=== PATIENT | female | born 1955 | race Caucasian/White ===

== ENCOUNTER 2016-12-30 09:24 | Observation (INO) ==
--- NOTE | 2016-12-30 10:00 | Emergency Department Note ---
Disposition Clinical Impression: Paresthesia Stroke Qualifiers: CVA mechanism: unspecified Qualified Code(s): I63.9 - Cerebral infarction, unspecified Disposition: Admitted As Inpatient Condition: Fair Neuro HPI - General Chief Complaint: ED Neuro Symptoms/Deficit Stated Complaint: Tingling/numbness of face, shaky legs/hands Time Seen by Provider: 12/30/16 09:32 Source: patient Limitations: no limitations Nursing Notes Reviewed: Yes Vital Signs Reviewed: Yes - History of Present Illness HPI Narrative: Patient here for evaluation of onset of neuro symptoms upon awakening. Patient went to bed last night at 9 PM without symptoms. She woke with what she felt was a tightness in her face and a numbness and tingling in her extremities that she described as all over. On physical exam the numbness is located to the left side of her face as well as her left upper and left lower extremity. Patient has seemed to concentrate in order to follow commands including sticking out her tongue as well as doing cerebellar signs. Cerebellar signs require slightly more concentration to left and may be associated with a mild left leg weakness as is not grossly abnormal and she does hit her targets. Patient does not take any medications at home. Denies smoking, occasional alcohol use, denies recreational drug use. Family history of heart disease but not stroke. Patient did have a workup approximately 15 years ago for neuro symptoms that were found to be negative. Patient did have a copy located hysterectomy resulted in infection and multiple adhesion surgeries. - Related Data Home Medications: Home Medications Medication Instructions Recorded Confirmed No Known Home Drugs 12/30/16 12/30/16 Allergies/Adverse Reactions: Allergies Allergy/AdvReac Type Severity Reaction Status Date / Time No Known Allergies Allergy Verified 12/30/16 09:28 Review of Systems: CONSTITUTIONAL: No weight loss, fever, chills, weakness or fatigue. HEENT: Eyes: No visual changes. Ears, Nose, Throat: No hearing loss, difficulty talking or unable to swallow. SKIN: No rash or itching. CARDIOVASCULAR: No chest pain, chest pressure or chest discomfort. No palpitations or edema. RESPIRATORY: No shortness of breath, cough or sputum. GASTROINTESTINAL: No anorexia, nausea, vomiting or diarrhea. No abdominal pain or blood. GENITOURINARY: No burning on urination or hematuria. NEUROLOGICAL: Numbness and tingling to the face arms and legs. MUSCULOSKELETAL: No muscle pain, back pain, joint pain or stiffness. Past Medical History - Past Medical History Medical history: Reports: no medical history - Social History Smoking Status: Never smoker Smokeless Tobacco Status: No Alcohol use: Reports: occasionally Drug use: Reports: none Physical Exam General appearance: NAD, conversant Eyes: anicteric sclerae, moist conjunctivae; PERRL HENT: Atraumatic; oropharynx clear with moist mucous membranes and no mucosal ulcerations Neck: Normal inspection; Trachea midline; FROM, supple Lungs: CTA, with normal respiratory effort and no intercostal retractions CV: RRR, no MRGs Abdomen: Soft, non-tender; no rebound or gaurding Extremities: No peripheral edema or extremity lymphadenopathy Skin: Normal temperature; no rash, ulcers or lesions Psych: Appropriate mood and affect Neuro: alert and oriented to person, place but not year - General Limitations: no limitations - Expanded Neurological Exam Speech: Present: fluid speech Cranial nerves: EOM function (II, III, IV, ): Normal, facial sensation (V): Abnormal Left, facial palsy (VII): Normal, gag reflex (IX): Normal, spinal accessory function (XI): Normal, tongue deviation (XII): Normal Cerebellar function: finger to nose: Normal, heel to mckenzie: Abnormal Left Cerebellar function: ataxic gait Motor strength - LUE: 4/5 Motor strength - RUE: 5/5 Motor strength - LLE: 4/5 Motor strength - RLE: 5/5 Sensory exam upper extremity: light touch: Abnormal Left Sensory exam lower extremity: light touch: Abnormal Left Coma Scale Eye Opening: Spontaneous Coma Scale Motor Response: Obeys Commands Coma Scale Verbal Response: Oriented Coma Scale Total: 15 - Psychiatric Psychiatric exam: Present: flat affect - Skin Skin exam: Present: warm, dry, intact Course - Reevaluation(s) Reevaluation #1: Patient symptoms remain. Stable in the department. CT negative for acute bleed. Workup otherwise negative. Patient was brought in for further observation and evaluation. - Consultations Consultation #1: Discussed with Dr. Barbour. Patient accepted for admission regarding abnormal neuro findings. Vital Signs Temperature 98.1 F 12/30/16 09:25 Pulse Rate 83 12/30/16 09:25 Respiratory Rate 18 12/30/16 09:25 Blood Pressure 128/84 12/30/16 09:25 O2 Sat by Pulse Oximetry 94 12/30/16 09:25 Temperature 98.3 F 12/30/16 18:51 Pulse Rate 72 12/30/16 18:51 Respiratory Rate 17 12/30/16 18:51 Blood Pressure 114/75 12/30/16 18:51 O2 Sat by Pulse Oximetry 98 12/30/16 18:51 Oxygen Delivery Oxygen Delivery Room Air Neuro Symptoms/Deficit - Medical Records Medical records reviewed: Yes I reviewed the patient's medical records. - Lab Data Lab results reviewed: Yes I reviewed the patient's lab results. Result diagrams: 12/30/16 10:00 12/30/16 10:00 Lab Results 12/30/16 12/30/16 12/30/16 Range/Units 09:33 10:00 10:00 WBC 4.7 (4.3-11.1) K/mcL RBC 5.18 H (3.82-4.97) M/mcL Hgb 15.5 H (11.5-15.4) g/dL Hct 46.1 H (35.3-44.9) % MCV 89.0 (83.0-100.0) fL MCH 29.9 (28.0-33.3) pg MCHC 33.6 (31.6-35.5) g/dL RDW 12.2 (11.5-14.5) % Plt Count 213 (140-400) K/mcL MPV 10.5 (9.4-12.4) fL Immature Gran % 0.2 (0-4) % Seg Neutrophils % 61.1 % Lymphocytes % 29.3 % Monocytes % 7.9 % Eosinophils % 0.6 % Basophils % 0.9 % Neutrophils # 2.9 (1.6-8.9) K/mcL Lymphocytes # 1.4 (0.6-4.6) K/mcL Monocytes # 0.4 (0.0-1.3) K/mcL Eosinophils # 0.0 (0.0-0.6) K/mcL Basophils # 0.0 (0.0-0.2) K/mcL PT 10.9 (9.4-12.1) Seconds INR 1.0 APTT 51.6 H (26.0-36.0) Seconds Sodium (136-145) mEq/L Potassium (3.5-4.5) mEq/L Chloride (98-109) mEq/L Carbon Dioxide (19-29) mEq/L BUN (7-20) mg/dL Creatinine (0.57-1.11) mg/dL Est GFR ( Amer) (> 60) Est GFR (Non-Af Amer) (> 60) BUN/Creatinine Ratio (6-26) Glucose (70-99) mg/dL POC Glucose 119 H (58-89) Calculated Osmolality (280-300) Calcium (8.6-10.8) mg/dL Ionized Calcium (1.15-1.35) mmol/L Phosphorus (2.3-4.7) mg/dL Magnesium (1.6-2.6) mg/dL Troponin I (0-0.03) ng/mL TSH (0.350-4.840) mcIU/mL PTH Intact (8.5-72.5) pg/ml 12/30/16 12/30/16 12/30/16 Range/Units 10:00 10:00 10:00 WBC (4.3-11.1) K/mcL RBC (3.82-4.97) M/mcL Hgb (11.5-15.4) g/dL Hct (35.3-44.9) % MCV (83.0-100.0) fL MCH (28.0-33.3) pg MCHC (31.6-35.5) g/dL RDW (11.5-14.5) % Plt Count (140-400) K/mcL MPV (9.4-12.4) fL Immature Gran % (0-4) % Seg Neutrophils % % Lymphocytes % % Monocytes % % Eosinophils % % Basophils % % Neutrophils # (1.6-8.9) K/mcL Lymphocytes # (0.6-4.6) K/mcL Monocytes # (0.0-1.3) K/mcL Eosinophils # (0.0-0.6) K/mcL Basophils # (0.0-0.2) K/mcL PT (9.4-12.1) Seconds INR APTT (26.0-36.0) Seconds Sodium 140 (136-145) mEq/L Potassium 3.8 (3.5-4.5) mEq/L Chloride 105 (98-109) mEq/L Carbon Dioxide 27 (19-29) mEq/L BUN 9 (7-20) mg/dL Creatinine 0.82 (0.57-1.11) mg/dL Est GFR ( Amer) > 60 (> 60) Est GFR (Non-Af Amer) > 60 (> 60) BUN/Creatinine Ratio 11 (6-26) Glucose 117 H (70-99) mg/dL POC Glucose (58-89) Calculated Osmolality 290 (280-300) Calcium 9.1 (8.6-10.8) mg/dL Ionized Calcium 1.09 L (1.15-1.35) mmol/L Phosphorus 3.3 (2.3-4.7) mg/dL Magnesium 2.2 (1.6-2.6) mg/dL Troponin I 0.00 (0-0.03) ng/mL TSH 1.700 (0.350-4.840) mcIU/mL PTH Intact 99.2 H (8.5-72.5) pg/ml - Radiology Data Radiology results reviewed: Yes I reviewed the patient's radiology results. - EKG Data EKG attestation: Yes I reviewed and interpreted this EKG. EKG results narrative: EKG shows sinus rhythm with ventricular rate of 78 bpm. IA interval 122. QRS 81. QTC 395. Patient has no significant ST elevations or depressions. Patient 's EKG unchanged from previous of 03/23/2007. TPA Checklist - LKW: 3-4.5 hrs Add. Contraindications Patient/family understanding: The patient/family members have been counseled and understood the risk, benefit , and alternatives of treatment.
[2016-12-30 10:14] LABS: Basophils % 0.9 %; Eosinophils % 0.6 %; Hematocrit 46.1 % (35.3-44.9); Hemoglobin 15.5 g/dL (11.5-15.4); Immature Granulocytes % 0.2 % (0-4); Lymphocytes # 1.4 K/mcL (0.6-4.6); Lymphocytes % 29.3 %; Mean Corpuscular HGB Conc 33.6 g/dL (31.6-35.5); Mean Corpuscular Hemoglobin 29.9 pg (28.0-33.3); Mean Platelet Volume 10.5 fL (9.4-12.4); Monocytes # 0.4 K/mcL (0.0-1.3); Monocytes % 7.9 %; Neutrophils # 2.9 K/mcL (1.6-8.9); Platelet Count 213 K/mcL (140-400); Red Blood Count 5.18 M/mcL (3.82-4.97); Red Cell Distribution Width 12.2 % (11.5-14.5); Segmented Neutrophils % 61.1 %
--- NOTE | 2016-12-30 10:16 | Emergency Department Note ---
START Narrative - START START: I examined this patient and my medical decision-making was reviewed with the EDGE BLACKER/PA/Advanced Practice Nurse/Resident Physician. I agree with the documented findings, disposition and treatment plan as described except to the extent set forth below. ED attending note: Patient seen with emergency medicine resident Dr. Quiles. Please see a copy of his note for details of the H&P, evaluation, management and disposition of this patient. We independently had [id number] contact with the patient Briefly: 61-year-old female ambulatory with spouse awoke with dysesthesia and slight heaviness of the left upper and lower extremity. Tingling sleepiness. Described as swollen asleep. Patient has slightly decreased strength in the left upper and lower extremity. Cranial nerves are normal gait appears to be normal although her mentation appears to be slow to answering questions. No prior TIA or CVA. She has been worked up for pleural sclerosis in the past which was negative per patient about 8 years ago. Patient will get a head CT and screening labs. EKG shows no acute ischemic changes sinus rhythm. Disposition pending.
[2016-12-30 10:18] LABS: Ionized Calcium 1.09 mmol/L (1.15-1.35)
[2016-12-30 10:22] LABS: Prothrombin Time 10.9 Seconds (9.4-12.1)
[2016-12-30 10:24] LABS: Activated Partial Thrombo Time 51.6 Seconds (26.0-36.0)
[2016-12-30 10:26] LABS: BUN/Creatinine Ratio 11 (6-26); Blood Urea Nitrogen 9 mg/dL (7-20); Calcium 9.1 mg/dL (8.6-10.8); Carbon Dioxide 27 mEq/L (19-29); Chloride 105 mEq/L (98-109); Glucose 117 mg/dL (70-99); Magnesium 2.2 mg/dL (1.6-2.6); Osmolality,Calculated 290 (280-300); Phosphorous 3.3 mg/dL (2.3-4.7); Potassium 3.8 mEq/L (3.5-4.5); Sodium 140 mEq/L (136-145); eGFR For African Americans > 60 (> 60); eGFR For Non-African Americans > 60 (> 60)
[2016-12-30] MEDS ORDERED: *HR* HYDROcodone/Acet 5/325 mg TABLET PO PRN (11:44)
[2016-12-30] MEDS ORDERED: Naloxone 0.4 MG/ML INJ IVP PRN (11:44)
[2016-12-30] MEDS ORDERED: Acetaminophen 325 MG TABLET PO PRN (11:44)
[2016-12-30] MEDS ORDERED: Ondansetron 4 MG/2 ML VIAL IVP PRN (11:44)
--- NOTE | 2016-12-30 12:04 | Internal Med History&Physical ---
<GissellPhu Mondragon - Last Filed: 12/30/16 16:05> Date of Encounter: 12/30/16 Time of Encounter: 11:30 Assessment and Plan (1) Neurological deficit present Current visit: Yes Status: Acute Assess: Mrs. García presents with neurological deficit symptoms when waking up this morning. Patient reports she did not have these when she went to bed. She describes the symptoms as numbness, tingling, and tightness in her face as well as numbness and tingling in her arms and legs bilaterally. Patient's states that she has had these symptoms before and had an MRI done years ago to check for MS but the results were negative. Patient reports that stress seems to coincide with these symptoms. Mrs. García reports having a neuro work-up approximately 14 years ago for similar symptoms that was negative. Patient shows some left-sided weakness on examination especially in the left leg when gait is observed. Patient is somewhat slow to respond to questioning and commands as well. Patient's current blood work show she is currently hypocoagulated and will not require anticoagulation at this time. Follow-up labs ordered. Plan: NIHSS scale and protocol Continuous cardiac telemetry Supplemental O2 Neurological checks at bedside per protocol Padding for bed rails Dysphagia screening CT of cervical spine ordered w/o contrast MR of head/brain ordered w/o contrast NPO for now based on dysphagia screen results Falls precautions/bed rest/[id number] when out of bed status (2) Weakness generalized Current visit: Yes Status: Acute Assess: Patient presents with complaint of numbness, tingling, and generalized weakness bilaterally. This is verified during examination, with more pronounced weakness in left arm and leg. Plan: NIHSS scale & protocol Falls precautions Bed rest Aw-dvfr-ntrywi only (3) DVT prophylaxis Current visit: Yes Status: Acute Assess: Patient placed on DVT prophylaxis per admission protocol, bed rest, and current stroke-like symptoms. Pharmacologic DVT prophylaxis is contraindicated due to possible stroke as well as patient's hypocoagulation status. Plan: SCDs ordered bilaterally for lower legs Follow-up labs ordered (APTT) Internal Medicine - H&P: HPI Chief complaint: Neuro symptoms/Deficits Admitted From: Emergency Dept Plans for Post Hospital Care: Home History of present illness: Ms. García is a 61 year old female presents from the ED with neurological deficit symptoms when waking up this morning. Patient reports she did not have these when she went to bed. She describes the symptoms as numbness, tingling, and tightness in her face as well as numbness and tingling in her arms and legs bilaterally. Patient's states that she has had these symptoms before and had an MRI done years ago to check for MS but the results were negative. Patient also reports generalized weakness and pain in her right shoulder that she had acupuncture done for. Patient reports that stress seems to coincide with these symptoms. Mrs. García reports having a neuro work-up approximately 14 years ago for similar symptoms that was negative. Patient shows some left- sided weakness on examination especially in the left leg when gait is observed. Patient is somewhat slow to respond to questioning and commands as well. Patient denies any recent illness, fever, chills, nausea, vomiting, diarrhea, melena, hematochezia, and hematemesis. Patients lungs are clear on auscultation and heart rate is normal and rhythmic. She denies smoking or drug use and reports EtOH use only occasionally. Patient is admitted as observation status with NIHSS scale and protocol including dysphasia screening and padding on bedrails, continuous cardiac telemetry and supplemental oxygen with titration, orders for CT of spine and MRA of head/brain (both w/o contrast). Patient is falls precautions with bed rest and up with assist only. SCDs will be placed bilaterally since pharmacologic DVT prophylaxis is contraindicated due to possible stroke. Patient to be monitored closely. Time spent with patient 40 minutes. Past Med Surg Social Fam HX - Past Medical History Source: patient Medical history: no medical history Psychiatric history: no psych history - Past Surgical History Surgical History: other (Removal of adhesions in uterus r/t cervical infection 14 years ago. Patient had blood clot to right lung following surgery and was placed on anticoagulation for one year.) - Social History Smoking Status: Never smoker Smokeless Tobacco Status: No Alcohol use: occasionally Drug use: none Current living situation: Home, With Family Activity Level: Independent ambulation Recent Out of Country Travel Within the Last 8 Weeks: No Exposure or Possible Exposure to Illness During Travel: No - Family History Father Race: Family Member Ethnicity: Non- Living Status: Age at : 89 Cause of : MS Hx Family Cardiac Disorders: Yes (MS) Hx Family Endocrine Disorder: Yes (DM) Mother Race: Family Member Ethnicity: Non- Living Status: Age at : 78 Hx Family Neurologic Disorders: Yes (Alzheimer's disease) Brother Race: Family Member Ethnicity: Non- Living Status: Still Living Hx Family Cardiac Disorders: Yes (HD) Sister Race: Family Member Ethnicity: Non- Living Status: Still Living Hx Family Medical Disorders: No Internal Medicine - H&P: Meds No Known Home Drugs 12/30/16 [History] Allergies No Known Allergies Allergy (Verified 12/30/16 09:28) All Systems PM: A 10-system review of systems was performed and is negative for pertinent findings except as documented above in the HPI. - Constitutional Constitutional: as per HPI, weakness, no chills, no fever(s), no night sweats - EENT Eyes: no change in vision, no discharge, no pain, no photophobia Ears: no ear discharge, no ear pain, no tinnitus Nose, mouth and throat: no dysphagia, no nasal discharge, no neck pain, no sore throat - Breasts Breasts: as per HPI - Cardiovascular Cardiovascular ROS IM: no chest pain, no diaphoresis, no dyspnea, no lightheadedness, no palpitations, no syncope - Respiratory Respiratory: no cough, no dyspnea, no wheezing, no excessive phlegm production - Gastrointestinal Gastrointestinal: no abdominal pain, no diarrhea, no hematemesis, no hematochezia, no melena, no nausea, no vomiting - Genitourinary Genitourinary: no change in urinary stream, no dysuria, no flank pain, no hematuria Menstruation: as per HPI - Musculoskeletal Musculoskeletal ROS IM: as per HPI, muscle weakness, numbness, tingling - Integumentary Integumentary IM: no rash, no unusual bruising - Neurological Neurological ROS: as per HPI, abnormal gait, focal weakness, numbness, tingling , weakness, no confusion, no convulsions, no tremor(s) - Psychiatric Psychiatric: as per HPI - Endocrine Endocrine IM: as per HPI, fatigue - Hematologic/Lymphatic Hematologic/Lymphatic: no easy bruising - Allergic/Immunologic Allergic/Immunologic: as per HPI - Constitutional Vitals: Temp Pulse Resp BP Pulse Ox 98.1 F 73 18 137/89 98 12/30/16 09:25 12/30/16 11:11 12/30/16 11:11 12/30/16 11:11 12/30/16 11:11 General appearance: Present: cooperative, A&O X 3, pleasant, no acute distress, answers questions appropriately (Answers slowly) - Head Head exam: Present: atraumatic, normocephalic - Eye Eye exam: Present: PERRL, conjuntiva pink, sclera anicteric Pupils: Present: PERRL - ENT ENT exam: Present: normal exam, normal external ear exam - Neck Neck exam general surgery: Present: supple, trachea midline. Absent: lymphadenopathy - Respiratory Respiratory exam: Present: CTAB. Absent: accessory muscle use, rales, rhonchi, wheezes - Cardiovascular Cardiovascular exam: Present: RRR, +S1, +S2. Absent: diastolic murmur, gallop, rubs, systolic murmur - GI/Abdominal GI/Abdominal exam: Present: normal bowel sounds, soft, no peritoneal signs. Absent: distended, tenderness - Rectal Rectal exam: Present: deferred - Additional comments: exam deferred. - Extremities Exam Extremities exam: Present: warm, radial pulses palpable and symetrical. Absent : calf tenderness, cyanotic, pedal edema - Back Exam Back exam: Present: normal inspection - Neurological Exam Neurological exam: Present: abnormal gait, alert, CN II-XII intact, oriented X3 - Psychiatric Psychiatric exam: Present: normal affect, normal mood - Skin Skin exam: Present: dry, intact Internal Med - H&P Results - Labs CBC & Chem 7: 12/30/16 10:00 12/30/16 10:00 - EKG Data -: EKG Interpreted by Myself EKG shows normal: sinus rhythm Rate: normal - EKG Data Prior EKG available for review: yes When compared to previous EKG: there is no significant change Interpretation IM: normal EKG EKG comments: 12/30/16 12:14 EKG dated 03/23/07 shows sinus rhythm and normal ECG. EKG dated 12/30/16 shows sinus rhythm and normal ECG. - Diagnostic Studies Chest x-ray Additional comments: Impressions Chest X-Ray 12/30/16 09:49 IMPRESSION: 1. No acute radiographic finding in the chest. D/ / Russ Bull MD / Russ Bull MD Interpreting Provider: Russ Bull MD CT scan - head Additional comments: Impressions Head CT 12/30/16 09:49 IMPRESSION: 1. No acute intracranial abnormality. 2. Mild global parenchymal volume loss with chronic microvascular ischemic change. 3. Minimal scattered atherosclerosis. D/ / Homero Olson MD / Homero Olson MD Interpreting Provider: Homero Olson MD <Tamiko Goodrich E - Last Filed: 12/30/16 19:06> Date of Encounter: 12/30/16 Internal Medicine - H&P: HPI History of present illness: Ms. García is a 61 year old female All Systems PM: A 10-system review of systems was performed and is negative for pertinent findings except as documented above in the HPI. - Constitutional Vitals: Temp Pulse Resp BP Pulse Ox 98.3 F 72 17 114/75 98 12/30/16 18:51 12/30/16 18:51 12/30/16 18:51 12/30/16 18:51 12/30/16 18:51 Internal Med - H&P Results - Labs CBC & Chem 7: 12/30/16 10:00 12/30/16 10:00 Labs: Liver Function 12/30/16 Range/Units 14:20 Total Bilirubin 0.7 (0.2-1.2) mg/dL Direct Bilirubin 0.3 (0.0-0.5) mg/dL AST 17 (5-34) Units/L ALT 17 (0-55) Units/L Alkaline Phosphatase 59 (38-126) Units/L Albumin 3.8 (3.5-5.0) g/dL - Impressions ITS Impressions Cervical Spine CT 12/30/16 11:49 IMPRESSION: 1. No acute findings in the cervical spine. 2. Minimal to mild cervical spine degenerative changes. Mild spinal canal stenosis at C5/C6, and mild bilateral neural foraminal narrowing at C4/C5. D/ / Lukas Rubio MD / Lukas Rubio MD Interpreting Provider: Lukas Rubio MD Brain MRI 12/30/16 11:59 IMPRESSION: 1. No acute intracranial abnormality. No acute infarct. 2. Mild global parenchymal volume loss with minimal chronic microvascular ischemic change. D/ / Homero Olson MD / Homero Olson MD Interpreting Provider: Homero Olson MD - Attending Attestation I examined this patient and reviewed laboratory, imaging and all diagnostic data. My medical decision-making was reviewed with Phu Borrero - VIELKA. I agree with the documented findings, disposition and treatment plan as described above. History and exam by me shows: Positive numbness and tingliness in face and extremities for more than 12 hours, patient is out of tPA window. delayed speech and forgetfulness. Strength is 4/5 in left side. Normal gait. CT head negative. Normal TSH. No diabetes. No medications or herbal supplements. Given concern for CVA, will check MRI brain. Patient and think she had same symptoms 10 years ago and was tested for MS but does not recall where and if she had a brain MRI. Check b12, folate, rpr. Elevated PTT 5 years ago and now it is 51, repeat PTT and check antiphospholipid studies, LOW. No family history of bleeding disorder. Check calcium ionized and vitamin D/PTHi.
[2016-12-30] MEDS ORDERED: 0.9 % Sodium Chloride 1,000 ML IVC SCH (12:15)
[2016-12-30 14:46] LABS: Activated Partial Thrombo Time 55.3 Seconds (26.0-36.0)
[2016-12-30 14:47] LABS: Albumin 3.8 g/dL (3.5-5.0); Albumin/Globulin Ratio 1.2 (1.1-2.2); Bilirubin,Direct 0.3 mg/dL (0.0-0.5); Bilirubin,Indirect 0.4 mg/dL (0.0-1.2); Bilirubin,Total 0.7 mg/dL (0.2-1.2); Globulin 3.2 g/dL (2.4-3.5); Magnesium 2.3 mg/dL (1.6-2.6); Phosphorous 3.2 mg/dL (2.3-4.7)
[2016-12-30 15:09] LABS: Ionized Calcium 1.09 mmol/L (1.15-1.35)
[2016-12-30 15:25] LABS: Folate 17.5 ng/mL (7.0-31.4)
[2016-12-30 15:34] LABS: D-Dimer < 215 ng/mLFEU (0-500)
[2016-12-30 20:05] LABS: Bilirubin,Urine Negative (Negative); Blood,Urine Negative (Negative); Clarity,Urine Clear (Clear); Color,Urine Yellow (Yellow); Glucose,Urine (UA) Normal (Normal); Ketones,Urine Negative (Negative); Leukocyte Esterase,Urine Moderate (Negative); Nitrite,Urine Negative (Negative); PH,Urine 6.5 pH Units (5.0-8.0); Protein,Urine Negative (Neg-Trace); Specific Gravity,Urine 1.018 (1.010-1.025); Urobilinogen,Urine Normal (Normal)
[2016-12-30 20:07] LABS: Bacteria,Urine None Seen per hpf (None-Few); Hyaline Casts,Urine None Seen per lpf (None-Few); RBC,Urine 0-3 per hpf (0-3); Squamous Epithelial Cell,Urine Many per lpf (None-Few); WBC,Urine 15-30 per hpf (0-3)
[2016-12-30 20:12] LABS: Amphetamine Screen,Urine Negative ng/mL (Cutoff=1000); Barbiturate Screen,Urine Negative ng/mL (Cutoff=200); Benzodiazepines Screen,Urine Negative ng/mL (Cutoff=200); Cannabinoid Screen,Urine Negative ng/mL (Cutoff = 50); Cocaine Screen,Urine Negative ng/mL (Cutoff= 300); Opiate Screen,Urine Negative ng/mL (Cutoff=300); Phencyclidine Screen,Urine Negative ng/mL (Cutoff=25)
[2016-12-31 03:50] LABS: Basophils # 0.1 K/mcL (0.0-0.2); Basophils % 0.8 %; Eosinophils # 0.1 K/mcL (0.0-0.6); Eosinophils % 1.9 %; Hematocrit 41.4 % (35.3-44.9); Immature Granulocytes % 0.2 % (0-4); Lymphocytes % 47.9 %; Mean Corpuscular HGB Conc 32.4 g/dL (31.6-35.5); Mean Corpuscular Hemoglobin 29.1 pg (28.0-33.3); Mean Platelet Volume 10.4 fL (9.4-12.4); Monocytes # 0.4 K/mcL (0.0-1.3); Neutrophils # 2.7 K/mcL (1.6-8.9); Platelet Count 195 K/mcL (140-400); Red Cell Distribution Width 12.1 % (11.5-14.5); Segmented Neutrophils % 42.2 %
[2016-12-31 03:51] LABS: Hemoglobin 13.4 g/dL (11.5-15.4)
[2016-12-31 03:53] LABS: Prothrombin Time 10.6 Seconds (9.4-12.1)
[2016-12-31 03:55] LABS: Activated Partial Thrombo Time 51.7 Seconds (26.0-36.0)
[2016-12-31 04:04] LABS: Alanine Aminotransferase 12 Units/L (0-55); Albumin 3.2 g/dL (3.5-5.0); Albumin/Globulin Ratio 1.2 (1.1-2.2); Alkaline Phosphatase 55 Units/L (38-126); Aspartate Amino Transferase 14 Units/L (5-34); BUN/Creatinine Ratio 12 (6-26); Bilirubin,Total 0.4 mg/dL (0.2-1.2); Blood Urea Nitrogen 9 mg/dL (7-20); Calcium 8.6 mg/dL (8.6-10.8); Carbon Dioxide 26 mEq/L (19-29); Chloride 110 mEq/L (98-109); Chol/HDL Ratio 2.7 (0-4.9); Cholesterol 165 mg/dL (< 200); Globulin 2.6 g/dL (2.4-3.5); Glucose 101 mg/dL (70-99); HDL Cholesterol 61 mg/dL (40-59); LDL Cholesterol,Calculated 89 mg/dL (0-99); Osmolality,Calculated 293 (280-300); Potassium 3.8 mEq/L (3.5-4.5); Sodium 142 mEq/L (136-145); Total Protein 5.8 g/dL (6.0-8.3); Triglycerides 76 mg/dL (< 150); eGFR For African Americans > 60 (> 60); eGFR For Non-African Americans > 60 (> 60)
--- NOTE | 2016-12-31 09:58 | Electrocardiograph Report ---
[address] [address] Test Date: 2016-12-30 Pat Name: Gina García Department: 105 Room: 3B Gender: F Research Spec: : 1955 Requested By: Daniel Quiles Order Number: [id number] Reading MD: iMk Monsalve MD Measurements Intervals [place] Rate: 78 P: 54 IN: 122 QRS: 46 QRSD: 81 T: 57 QT: 361 QTc: 395 Interpretive Statements SINUS RHYTHM Electronically Signed On 12-31-2016 9:56:57 EDT by Mik Monsalve MD
[2016-12-31 10:54] VITALS: BP 129/79
--- NOTE | 2016-12-31 11:51 | Discharge Summary ---
Date of Encounter: 12/31/16 Time of Encounter: 09:25 - Discharge Diagnosis (1) Neurological deficit present Priority: Primary Status: Acute (2) Weakness generalized Priority: Secondary Status: Acute (3) Paresthesia Priority: Secondary Status: Acute (4) DVT prophylaxis Priority: Secondary Status: Acute Comments: Pt is ambultory and observation status. She has been diagnosed with coagulopathy in the past and labs are pending. - Discharge Medications Home Medications: No Known Home Drugs 12/30/16 [History] Allergies/Adverse Reactions: Allergies No Known Allergies Allergy (Verified 12/30/16 09:28) Procedures/tests Complete & Pending: Procedures Performed prior 72 hours Category Date Time Status CT cervical spine wo con [CT] Routine Cat Scan 12/30/16 11:49 Completed MR head/brain wo con [MR] Stat MRI 12/30/16 11:59 Completed Date of admission: 12/30/16 11:25 Primary care physician: La Butcher Discharging clinician: [facility] Anticipated date of discharge: 12/31/16 - Patient Status Disposition: Home, Self-Care Condition: Good Functional capacity at discharge: independent ambulation Overall status at discharge: patient is progressing back to baseline - Discharge Instructions Instructions: Weakness (GEN) Follow Up With: La Butcher MD [Primary Care Provider] - 01/08/17 10:45 am Lukas Chowdhury DO [Partnered Physician] - 01/21/17 7:30 am Additional Instructions: Please follow up with your primary care provider. You have a follow up appointment with Dr Chowdhury on 01/21 at 7:30. Please return to the ER as needed for any other problems or concerns or if your symptoms wo - Diet and Activity Activity: increase activity as tolerated Diet: advance to your usual diet Hospital course: Ms. García is a 61 year old female who presented to the ER on 12/30/16 with facial numbness and tingling, and generalized weakness. Pt states that she has had the facial and extremity tingling for about 12 years and has been worked up for MS in the past. Pt has seen Dr. Chowdhury several years ago for same. Pt states that she has noticed that the tingling becomes worse and more apparent after episodes of stress. Pt states that she was walking down the stairs at home yesterday and her R foot was externally rotated and she could not rotate it back. She denied pain or headache. She denies vision changes, nausea, or dizziness. While in the ED yesterday, states that the pt had ataxia, confusion, and memory loss, as well as difficulty following commands. Pt has returned to baseline. she and her want to follow up outpatient. Pt is neurologically intact, but is noticably weak, left slightly more so than right. Patient states that her gait is steady and that she has no difficulty with ambulation. Her speech is clear and her strength is equal, but weak, both upper and lower guzman. She does not feel dizzy, headache no vision changes, no nausea. Patient states that she wants to go home and would like to follow-up with neurology outpatient. An appointment has been made and she will see Dr. Chowdhury on January 21. MRI rain was negative for intracranial abnormality or infarct, + mild dlobal parenchymal volume loss ith minimal chronic microvascular ischemic change. Labs are within normal limits other than APTT, pt states that she has been diagnosed with coagulopathy in the past. Urine culture is pending. Vital signs are within normal limits. Pt is ready for discharge. - Time Spent with Patient Total time spent providing and/or coordinating discharge services: Less than 30 minutes - Constitutional Vitals: Temp Pulse Resp BP Pulse Ox 98.1 F 77 17 129/79 98 12/31/16 10:54 12/31/16 10:54 12/31/16 10:54 12/31/16 10:54 12/31/16 10:54 General appearance: Present: cooperative, A&O X 3, pleasant, no acute distress, answers questions appropriately (Answers slowly) - Head Head exam: Present: normal inspection - Eye Eye exam: Present: EOMI, normal appearance, conjuntiva pink. Absent: nystagmus - ENT ENT exam: Present: mucous membranes moist, normal exam - Neck Neck exam general surgery: Present: normal inspection, supple. Absent: lymphadenopathy, tenderness, nuchal rigidity - Respiratory Respiratory exam: Present: CTAB. Absent: rales, respiratory distress, rhonchi, stridor, wheezes - Cardiovascular Cardiovascular exam: Present: RRR, +S1, +S2. Absent: clicks, diastolic murmur, gallop, systolic murmur - GI/Abdominal GI/Abdominal exam: Present: normal bowel sounds, soft. Absent: distended, firm , hepatomegaly, tenderness - Extremities Exam Extremities exam: Present: normal capillary refill, warm, radial pulses palpable and symetrical. Absent: pedal edema, tenderness - Neurological Exam Neurological exam: Present: alert, oriented X3, no focal deficits, strengths equal and symetr throughout. Absent: motor sensory deficit, pronater drift, facial droop, speech deficit - Expanded Neurological Exam Neurological exam expanded: Absent: expressive aphasia, tremor Speech: Absent: expressive aphasia, garbled - Skin Skin exam: Present: dry, intact, normal color, warm. Absent: rash
[2016-12-31 11:57] LABS: Hepatitis A Antibody IgM Nonreactive (Nonreactive); Hepatitis B Core IgM Nonreactive (Nonreactive); Hepatitis B Surface Antigen Nonreactive (Nonreactive); Hepatitis C Virus Antibody Nonreactive (Nonreactive)
[2017-01-02 10:37] LABS: ANA IgG by ELISA NONE DETECTED (None Detected)
[2017-01-06 11:01] LABS: Antiphospholipid IgG High Spec 1 GPL (0-14); Antiphospholipid IgM High Spec 1 MPL (0-14)
== END 2016-12-31 12:50 | disposition home or self-care (01) ==
LOC: EMEROO 09:24 → 3BNU 09:24
PROVIDERS: ADMIT Internal Medicine; ATTEND Registered Nurse